=== PATIENT | female | born 1995 | race Two or more races ===

== ENCOUNTER 2020-07-21 03:24 | Emergency (ER) | payer MEDICAID, OTHER ==
[~2020-07-21] VITALS: Ht 162.6 cm; Wt 63.5 kg
[2020-07-21] MEDS ORDERED: LORAZEPAM INJ 2 MG/ML VIAL ONE (03:35)
[2020-07-21 03:49] LABS: BASOPHILS % (AUTO) 0.2 % (0.0-2.0); HEMATOCRIT 43 % (33-45); HEMOGLOBIN 13.7 g/dL (11.5-14.8); LYMPHOCYTES # (AUTO) 1.8 /CMM (0.8-4.8); MEAN CORPUSCULAR HGB CONC 32 g/dl (31.0-36.0); MEAN CORPUSCULAR VOLUME 88 fL (82-100); MONOCYTES # (AUTO) 1.2 /CMM (0.1-1.30); MONOCYTES % (AUTO) 6.3 % (2.0-12.0); NEUTROPHILS # (AUTO) 15.4 /CMM (1.8-8.9); NEUTROPHILS % (AUTO) 83.5 % (43.0-81.0); PLATELET COUNT (AUTO) 363 /CMM (150-450); RED BLOOD CELL COUNT(AUTO) 4.89 MIL/uL (4.0-5.2); WHITE BLOOD COUNT (AUTO) 18.4 K/uL (4.3-11.0)
--- NOTE | 2020-07-21 03:50 | NUR ---
PT AMELIA FROM A [facility] ON [facility]. PER RA PT WAS AMBULATING AROUND THE MOTEL. ALSO PER RA PT WAS MISSING FOR 1 WEEK. PT PLACED IN BED 12 ON MONITOR AND PULSE OX. PT MADE A PHONE CALL TO HER SISTER WHOM I SPOKE WITH AND UPDATED TO COME TO THE E.D. FOR MORE INFORMATION. NO ACUTE DISTRESS NOTED. PT NOTED TO BE SCARE, PT REASSURED BY STAFF.
[2020-07-21] MEDS ORDERED: LORAZEPAM INJ 2 MG/ML VIAL IM ONE (04:00)
[2020-07-21 04:03] LABS: ALANINE AMINOTRANSFERASE 45 U/L (12-78); ALBUMIN 4.3 g/dL (3.4-5.0); ALCOHOL, BLOOD < 3 mg/dL (0-0); ALKALINE PHOSPHATASE 76 U/L (46-116); ASPARTATE AMINOTRANSFERASE 69 U/L (15-37); BILIRUBIN,DIRECT 0.1 mg/dL (0.0-0.2); BILIRUBIN,TOTAL 0.2 mg/dL (0.2-1.0); CARBON DIOXIDE 21 mmol/L (21-32); CHLORIDE 99 mmol/L (98-107); CREATININE 1.2 mg/dL (0.6-1.3); GLUCOSE 154 mg/dL (74-106); POTASSIUM 3.5 mmol/L (3.5-5.1); SODIUM SERUM 139 mmol/L (136-145); TOTAL PROTEIN, SERUM 8.7 g/dL (6.4-8.2); UREA NITROGEN, BLOOD 18 mg/dL (7-18)
--- NOTE | 2020-07-21 04:03 | NUR ---
MOLDING SUPERVISOR AT BEDSIDE FOR LABS.
[2020-07-21 04:10] LABS: ACETAMINOPHEN 0 ug/ml (10-30); SALICYLATE 2.1 mg/dL (2.8-20.0)
--- NOTE | 2020-07-21 04:12 | NUR ---
SPOKE TO PT, SHE STATED " RADHA GUIDO " WAS THE AVA WHO WAS WITH HER AT THE HOTEL.
[2020-07-21 05:41] LABS: APPEARANCE,URINE SL CLOUDY (CLEAR); BILIRUBIN,URINE NEGATIVE (NEGATIVE); BLOOD, URINE SMALL Ery/uL (NEGATIVE); COLOR,URINE YELLOW (YELLOW); KETONES,URINE NEGATIVE (NEGATIVE); LEUKOCYTE ESTERASE ,URINE TRACE (NEGATIVE); NITRITE, URINE POSITIVE (NEGATIVE); PROTEIN,URINE TRACE mg/dl (NEGATIVE); UGLUCOSE NEGATIVE (NEGATIVE); UROBILINOGEN,URINE 0.2 EU/dL (0.2)
[2020-07-21 05:48] LABS: BACTERIA,URINE Moderate /HPF (None Seen); MUCUS,URINE Many /LPF (None Seen); SQUAMOUS EPITHELIAL CELL,UR Moderate /HPF (None Seen); WBC,URINE 51-80 /HPF (0-3)
--- NOTE | 2020-07-21 06:01 | NUR ---
PT NOTED TACHY, PLACED ON MANUAL ARTS TEACHER. VSS.
--- NOTE | 2020-07-21 06:56 | NUR ---
UPDATED PT PLAN OF CARE.
--- NOTE | 2020-07-21 07:49 | NUR ---
PATIENT RESTING IN BED. STILL NOTED TO BE TACHYCARDIC. NO COMPLAINTS OR DISTRESS AT THIS TIME.
--- NOTE | 2020-07-21 08:18 | NUR ---
SJ ESCOBARW CALLED FOR EVAL AND PLACEMENT
--- NOTE | 2020-07-21 08:45 | NUR ---
JEET BROWN STOCK WASHER AT BEDSIDE, PATIENT A/OX4, AMBULATORY WITH STEADY GAIT. NO DISTRESS NOTED. PATIENT RE-ASSESSED BY DR. OLIVA AND IS MEDICALLY CLEARED FOR DISCHARGE. FAMILY STILL OUT IN THE WAITING ROOM WAITING FOR BROWN STOCK WASHER.
--- NOTE | 2020-07-21 09:00 | NUR ---
Patient is a 25 year-old female. Per MD note, "PT BIBRA FROM A [facility] ON [facility]. PER RA PT WAS AMBULATING AROUND THE MOTEL. ALSO PER RA PT WAS MISSING FOR 1 WEEK." Patient reports that she had a bad night because she is not on her anxiety medications. Patient's thought process is not clear. Patient is willing to receive help at [facility][1] Urgent [facility] [address] , [place] [address] . This SW spoke with Sister Karley and sister agrees to take to [facility] [id number] , [place] [address]
--- NOTE | 2020-07-21 09:03 | NUR ---
PATIENT A/OX4, BREATHING EVEN AND UNLABORED, NO DISTRESS NOTED. NEEDS ATTENDED. AMBULATORY WITH STEADY GAIT, ALL BELONGINGS GIVEN TO PATIENT. [facility] GAVE RESOURCES TO FAMILY. Patient discharged to home in stable condition. Written and verbal after care instructions given. Patient verbalizes understanding of instruction.
[2020-07-21 09:06] VITALS: BP 127/84
== END 2020-07-21 09:11 | disposition home or self-care (01) ==
LOC: ER 03:26
DX: F15.10 Other stimulant abuse, uncomplicated (principal)
CPT/HCPCS: 36415; 80048; 80076; 80305; 80307; 80329; 81001; 84703; 85025; 96372; 99283; G0480; J2060; 81000-TC; 87086-TC